=== PATIENT | female | born 1995 | race Caucasian/White ===

== ENCOUNTER 2021-01-03 16:47 | Emergency (ER) | payer OTHER ==
[~2021-01-03] VITALS: Ht 167.6 cm; Wt 65.8 kg
[~2021-01-03 16:47] MED LIST: Amoxicillin500 MG PO; Bactrim Ds Tab1 EACH PO; DEPRESSION MED; Flagyl500 MG PO; Keflex500 MG PO; MEDR150I IM; Macrobid 100 M100 MG PO; Tylenol325 MG PO; Verotin-Gr Cap1 EACH PO; Zofran Odt4 MG SL
[2021-01-03] MEDS ORDERED: Veetids 500500 MG PO (17:20)
== END 2021-01-03 17:28 | disposition home or self-care (01) ==
LOC: ER 16:47
DX: J02.0 Streptococcal pharyngitis (principal)
CPT/HCPCS: 81000; 81025; 87430; 99282; J1100

== ENCOUNTER 2021-05-03 20:50 | Emergency (ER) | payer OTHER ==
[~2021-05-03] VITALS: Ht 172.7 cm; Wt 68.0 kg
[~2021-05-03 20:50] MED LIST changes: +Veetids 500500 MG PO
== END 2021-05-03 22:54 | disposition home or self-care (01) ==
LOC: ER 20:50
DX: L25.5 Unspecified contact dermatitis due to plants, except food (principal); Z91.018 Allergy to other foods
CPT/HCPCS: 96372; 99282-25; A9270; J3301

== ENCOUNTER 2021-10-02 02:32 | Emergency (ER) | payer OTHER ==
[~2021-10-02] VITALS: Ht 172.7 cm; Wt 65.8 kg
== END 2021-10-02 04:21 | disposition home or self-care (01) ==
LOC: ER 02:32
DX: F41.9 Anxiety disorder, unspecified (principal); Z91.018 Allergy to other foods
CPT/HCPCS: 93005; 93010; 99285-25

== ENCOUNTER 2022-04-29 20:05 | Emergency (ER) | payer OTHER ==
[~2022-04-29] VITALS: Ht 172.7 cm; Wt 65.8 kg
== END 2022-04-29 20:31 | disposition left against medical advice (07) ==
LOC: ER 20:05
DX: R51.9 Headache, unspecified (principal); Z53.21 Procedure and treatment not carried out due to patient leaving prior to being seen by health care provider
CPT/HCPCS: 93005; 93010

== ENCOUNTER 2022-04-29 20:56 | Emergency (ER) | payer OTHER ==
[~2022-04-29] VITALS: Ht 172.7 cm; Wt 65.8 kg
[2022-04-29 21:30] LABS: BASOPHILS ABSOLUTE AUTO 0.03 K/mm3 (0.00-0.23); BASOPHILS PERCENT AUTO 0 % (0-2); EOSINOPHILS PERCENT AUTO 1 % (0-6); Hematocrit 41.3 % (33.0-51.0); IMMATURE GRAN ABSOLUTE AUTO 0.02 K/mm3 (0.00-0.10); IMMATURE GRAN PERCENT AUTO 0 % (0-1); LYMPHOCYTES ABSOLUTE AUTO 1.63 K/mm3 (0.84-5.20); LYMPHOCYTES PERCENT AUTO 23 % (21-46); MONOCYTES ABSOLUTE AUTO 0.48 K/mm3 (0.16-1.47); MONOCYTES PERCENT AUTO 7 % (4-13); Mean Corpuscular HGB 29.3 pg (26.0-34.0); Mean Corpuscular HGB Conc 33.9 g/dL (31.5-36.5); Mean Corpuscular Volume 86 fL (80-100); NEUTROPHILS ABSOLUTE AUTO 4.91 K/mm3 (1.96-9.15); NEUTROPHILS PERCENT AUTO 69 % (41-73); Platelet Count 267 K/mm3 (150-400); RDW Coefficient Variation 12.6 % (11.7-14.2); RDW Standard Deviation 40.2 fL (35.1-46.3); Red Blood Cell Count 4.78 M/mm3 (3.80-5.20); White Blood Cell Count 7.17 K/mm3 (4.00-11.30)
[2022-04-29 21:47] LABS: Albumin/Globulin Ratio 1.1 (0.8-1.8); Bilirubin, Total 0.4 mg/dL (0.1-1.0); Bun/Creatinine Ratio 11.9 (12.0-20.0); Calcium, Blood 9.2 mg/dL (8.5-10.1); Creatinine, Blood 0.76 mg/dL (0.40-1.00); Globulin, Blood 3.7 g/dL (2.2-4.0); Total Protein, Blood 7.7 g/dL (6.4-8.2)
== END 2022-04-30 00:01 | disposition home or self-care (01) ==
LOC: ER 20:56
PROVIDERS: Physician Assistant
DX: R00.2 Palpitations (principal); F32.A Depression, unspecified; F41.9 Anxiety disorder, unspecified; Z91.018 Allergy to other foods
CPT/HCPCS: 36415; 71046; 80053; 84484; 85025; A9270

== ENCOUNTER → 2022-10-03 | Outpatient (CLI) | payer OTHER | END | disposition home or self-care (01) | LOC: LAB 16:00 → LAB SHORT 16:00 | PROVIDERS: Obstetrics & Gynecology | DX: Z12.4 Encounter for screening for malignant neoplasm of cervix (principal) | CPT/HCPCS: G0145 ==

== ENCOUNTER 2023-11-16 15:41 | Emergency (ER) | payer OTHER ==
[~2023-11-16] VITALS: Ht 172.7 cm; Wt 68.5 kg
[2023-11-16 16:13] LABS: BASOPHILS ABSOLUTE AUTO 0.03 K/mm3 (0.00-0.23); BASOPHILS PERCENT AUTO 0 % (0-2); EOSINOPHILS ABSOLUTE AUTO 0.03 K/mm3 (0.00-0.68); EOSINOPHILS PERCENT AUTO 0 % (0-6); Hematocrit 42.8 % (33.0-51.0); Hemoglobin 14.7 g/dL (11.5-16.0); IMMATURE GRAN ABSOLUTE AUTO 0.02 K/mm3 (0.00-0.10); IMMATURE GRAN PERCENT AUTO 0 % (0-1); LYMPHOCYTES ABSOLUTE AUTO 2.02 K/mm3 (0.84-5.20); LYMPHOCYTES PERCENT AUTO 26 % (21-46); MONOCYTES ABSOLUTE AUTO 0.36 K/mm3 (0.16-1.47); MONOCYTES PERCENT AUTO 5 % (4-13); Mean Corpuscular HGB 29.4 pg (26.0-34.0); Mean Corpuscular HGB Conc 34.3 g/dL (31.5-36.5); Mean Corpuscular Volume 86 fL (80-100); NEUTROPHILS ABSOLUTE AUTO 5.47 K/mm3 (1.96-9.15); NEUTROPHILS PERCENT AUTO 69 % (41-73); Platelet Count 292 K/mm3 (150-400); RDW Coefficient Variation 12.8 % (11.7-14.2); RDW Standard Deviation 39.8 fL (35.1-46.3); White Blood Cell Count 7.93 K/mm3 (4.00-11.30)
[2023-11-16 16:35] LABS: Albumin, Blood 4.1 g/dL (3.4-5.0); Bun/Creatinine Ratio 15.4 (12.0-20.0); Calcium, Blood 9.5 mg/dL (8.5-10.1); Creatinine, Blood 0.78 mg/dL (0.40-1.00); Globulin, Blood 4.1 g/dL (2.2-4.0); Potassium, Blood 3.5 mmol/L (3.5-5.5); Total Protein, Blood 8.2 g/dL (6.4-8.2)
[2023-11-16 17:30] VITALS: BP 120/65
[2023-11-16] MEDS ORDERED: NS 1,000 ML IV SCH (17:30)
[2023-11-16] MEDS ORDERED: Tranexamic Acid 100 ML IV ONE (17:30)
[2023-11-16] MEDS ORDERED: METERG.2 PO (17:52)
[2023-11-16] MEDS ORDERED: DiphenhydrAMINE HCl 50 MG/ML 1ML Vial IV ONE (18:10)
== END 2023-11-16 19:43 | disposition home or self-care (01) ==
LOC: ER 15:41
PROVIDERS: Emergency Medicine
DX: N93.9 Abnormal uterine and vaginal bleeding, unspecified (principal)
CPT/HCPCS: 80053; 84703; 85025; 86850; 86900; 86901; J1200; J7030

== ENCOUNTER 2024-06-22 12:21 | Emergency (ER) | payer OTHER ==
[~2024-06-22] VITALS: Ht 172.7 cm; Wt 69.0 kg
[~2024-06-22 12:21] MED LIST changes: +METERG.2 PO
[2024-06-22 14:45] VITALS: BP 98/63
== END 2024-06-22 14:54 | disposition home or self-care (01) ==
LOC: ER 12:21
DX: O20.0 Threatened abortion (principal)
CPT/HCPCS: 76815; 99284-25

== ENCOUNTER → 2024-08-05 | Outpatient (CLI) | payer OTHER ==
[2024-08-05 14:00] LABS: Hematocrit 29.8 % (33.0-51.0); Hemoglobin 10.1 g/dL (11.5-16.0)
== END ==
LOC: LAB 12:03 → LAB SHORT 12:03
PROVIDERS: Registered Nurse Community Health
DX: Z34.92 Encounter for supervision of normal pregnancy, unspecified, second trimester (principal)
CPT/HCPCS: 82950; 85014; 85018

== ENCOUNTER → 2024-10-02 | Outpatient (CLI) | payer OTHER ==
[2024-10-02 17:32] LABS: BASOPHILS ABSOLUTE AUTO 0.08 K/mm3 (0.00-0.23); BASOPHILS PERCENT AUTO 1 % (0-2); EOSINOPHILS ABSOLUTE AUTO 0.06 K/mm3 (0.00-0.68); EOSINOPHILS PERCENT AUTO 1 % (0-6); Hematocrit 31.4 % (33.0-51.0); Hemoglobin 9.8 g/dL (11.5-16.0); IMMATURE GRAN ABSOLUTE AUTO 0.11 K/mm3 (0.00-0.10); IMMATURE GRAN PERCENT AUTO 1 % (0-1); LYMPHOCYTES ABSOLUTE AUTO 1.58 K/mm3 (0.84-5.20); LYMPHOCYTES PERCENT AUTO 15 % (21-46); MONOCYTES ABSOLUTE AUTO 0.74 K/mm3 (0.16-1.47); MONOCYTES PERCENT AUTO 7 % (4-13); Mean Corpuscular HGB 25.5 pg (26.0-34.0); Mean Corpuscular HGB Conc 31.2 g/dL (31.5-36.5); Mean Corpuscular Volume 82 fL (80-100); Mean Platelet Volume 9.4 fL (9.1-12.4); NEUTROPHILS PERCENT AUTO 76 % (41-73); Platelet Count 251 K/mm3 (150-400); RDW Coefficient Variation 13.9 % (11.7-14.2); RDW Standard Deviation 41.3 fL (35.1-46.3); Red Blood Cell Count 3.84 M/mm3 (3.80-5.20); White Blood Cell Count 10.67 K/mm3 (4.00-11.30)
== END ==
LOC: LAB SHORT 16:02 → LAB 16:02
PROVIDERS: Registered Nurse Community Health
DX: O99.013 Anemia complicating pregnancy, third trimester (principal); Z3A.00 Weeks of gestation of pregnancy not specified
CPT/HCPCS: 36415; 85025; 87081; 87150

== ENCOUNTER → 2024-10-08 | Outpatient (CLI) | payer OTHER ==
[2024-10-08 15:12] LABS: Iron Serum 28 ug/dL (50-170); Percent Saturation 4.5 % (15.0-50.0); Total Iron Binding Capacity 627 ug/dL (250-450)
[2024-10-08 15:20] LABS: Ferritin, Serum <1 ng/mL (8-252)
== END ==
LOC: LAB 13:29 → LAB SHORT 13:29
PROVIDERS: Registered Nurse Community Health
DX: O99.013 Anemia complicating pregnancy, third trimester (principal)
CPT/HCPCS: 82728; 83540; 83550

== ENCOUNTER 2024-10-22 12:53 | Inpatient (IN) | payer OTHER ==
[2024-10-22] VITALS (28 sets, daily range): BP systolic 92–225; BP diastolic 50–151
[~2024-10-22] VITALS: Ht 172.7 cm; Wt 79.0 kg
[2024-10-22] MEDS ORDERED: FentaNYL Citrate 50 MCG/ML 2 ML Injection IV PRN (13:35)
[2024-10-22] MEDS ORDERED: ePHEDrine Sulfate 50 MG/ML 1ML Injection XX PRN (13:35)
[2024-10-22] MEDS ORDERED: Carboprost Tromethamine 250 MCG/ML 1ML Amp IM PRN (13:35)
[2024-10-22] MEDS ORDERED: Acetaminophen 500 MG Tab PO PRN (13:35)
[2024-10-22] MEDS ORDERED: Methylergonovine Maleate 0.2MG / ML 1ML Amp IM PRN ×2 (13:35→19:00)
[2024-10-22] MEDS ORDERED: Oxytocin 10 Unit / ML Vial IM PRN (13:35)
[2024-10-22] MEDS ORDERED: Tranexamic Acid 100 ML IV SCH (13:35)
[2024-10-22] MEDS ORDERED: Misoprostol 200 MCG Tab BC PRN (13:35)
[2024-10-22] MEDS ORDERED: OXYTOCIN/RINGER'S LACTATE 500 ML IV PRN (13:35)
[2024-10-22] MEDS ORDERED: FentaNYL 2mcg/ml-Bup 0.1% Epd 250 ML EPI PRN (13:35)
[2024-10-22] MEDS ORDERED: Ondansetron HCl 2 MG / ML 2ML Vial IV PRN (13:35)
[2024-10-22] MEDS ORDERED: Lactated Ringer's 1,000 ML IV PRN ×3 (13:35)
[2024-10-22] MEDS ORDERED: Misoprostol 200 MCG Tab PR PRN (13:35)
[2024-10-22] MEDS ORDERED: Calcium Carbonate 500 MG Tab Chew PO PRN (13:40)
[2024-10-22 14:16] LABS: BASOPHILS ABSOLUTE AUTO 0.07 K/mm3 (0.00-0.23); BASOPHILS PERCENT AUTO 1 % (0-2); EOSINOPHILS ABSOLUTE AUTO 0.04 K/mm3 (0.00-0.68); EOSINOPHILS PERCENT AUTO 0 % (0-6); Hematocrit 35.7 % (33.0-51.0); Hemoglobin 11.1 g/dL (11.5-16.0); IMMATURE GRAN ABSOLUTE AUTO 0.13 K/mm3 (0.00-0.10); IMMATURE GRAN PERCENT AUTO 1 % (0-1); LYMPHOCYTES ABSOLUTE AUTO 1.86 K/mm3 (0.84-5.20); LYMPHOCYTES PERCENT AUTO 15 % (21-46); MONOCYTES ABSOLUTE AUTO 0.62 K/mm3 (0.16-1.47); MONOCYTES PERCENT AUTO 5 % (4-13); Mean Corpuscular HGB 24.4 pg (26.0-34.0); Mean Corpuscular HGB Conc 31.1 g/dL (31.5-36.5); Mean Corpuscular Volume 79 fL (80-100); Mean Platelet Volume 9.7 fL (9.1-12.4); NEUTROPHILS ABSOLUTE AUTO 9.43 K/mm3 (1.96-9.15); NEUTROPHILS PERCENT AUTO 78 % (41-73); Platelet Count 251 K/mm3 (150-400); RDW Coefficient Variation 14.9 % (11.7-14.2); RDW Standard Deviation 42.6 fL (35.1-46.3); Red Blood Cell Count 4.55 M/mm3 (3.80-5.20); White Blood Cell Count 12.15 K/mm3 (4.00-11.30)
[2024-10-22] MEDS ORDERED: FERREX 150150 M1 (14:23)
[2024-10-22] MEDS ORDERED: PRENATAL 19 TA1 EAC3 PO (14:24)
[2024-10-22] MEDS ORDERED: OXYTOCIN/RINGER'S LACTATE 500 ML IV SCH ×2 (17:05→19:05)
[2024-10-22] MEDS ORDERED: Witch Hazel/Glycerin PADS TOP PRN (19:00)
[2024-10-22] MEDS ORDERED: FLU VACC TS2024-25(6MOS UP)/PF 45 MCG/0.5 ML SYRINGE IM SCH (19:00)
[2024-10-22] MEDS ORDERED: Ibuprofen 400 MG Tab PO PRN (19:00)
[2024-10-22] MEDS ORDERED: Lanolin Cream TOP PRN (19:00)
[2024-10-22] MEDS ORDERED: Measles/Mumps/Rubella Vaccine 0.5 ML Vial SC SCH (19:00)
[2024-10-22] MEDS ORDERED: Docusate Sodium 100 MG Cap PO PRN (19:00)
[2024-10-22] MEDS ORDERED: Oxytocin 10 Unit / ML Vial IM ONE (19:05)
[2024-10-22] MEDS ORDERED: Ketorolac Tromethamine 30mg Vial IV PRN (19:05)
[2024-10-22] MEDS ORDERED: Rho(D) Immune Globulin 300 MCG / SYR IM ONE (19:05)
[2024-10-22] MEDS ORDERED: Acetaminophen 325 MG TABLET PO PRN (19:05)
[2024-10-22] MEDS ORDERED: Lactated Ringer's 1,000 ML IV SCH (19:05)
[2024-10-22] MEDS ORDERED: Benzocaine Topical Anesthetic Spray 60GM TOP PRN (19:10)
[2024-10-22] MEDS ORDERED: Acetaminophen/Codeine 300-30 mg PO PRN (19:10)
[2024-10-22] MEDS ORDERED: Misoprostol 200 MCG Tab XX PRN (19:20)
[2024-10-22] MEDS ORDERED: Rho(D) Immune Globulin 300 MCG / SYR IV ONE (21:55)
[2024-10-23 05:07] VITALS: BP 103/51
[2024-10-23 07:17] LABS: BASOPHILS ABSOLUTE AUTO 0.06 K/mm3 (0.00-0.23); BASOPHILS PERCENT AUTO 1 % (0-2); EOSINOPHILS ABSOLUTE AUTO 0.08 K/mm3 (0.00-0.68); EOSINOPHILS PERCENT AUTO 1 % (0-6); Hematocrit 28.2 % (33.0-51.0); Hemoglobin 8.8 g/dL (11.5-16.0); IMMATURE GRAN ABSOLUTE AUTO 0.14 K/mm3 (0.00-0.10); IMMATURE GRAN PERCENT AUTO 1 % (0-1); LYMPHOCYTES ABSOLUTE AUTO 1.89 K/mm3 (0.84-5.20); LYMPHOCYTES PERCENT AUTO 17 % (21-46); MONOCYTES ABSOLUTE AUTO 1.02 K/mm3 (0.16-1.47); MONOCYTES PERCENT AUTO 9 % (4-13); Mean Corpuscular HGB 24.2 pg (26.0-34.0); Mean Corpuscular HGB Conc 31.2 g/dL (31.5-36.5); Mean Corpuscular Volume 78 fL (80-100); Mean Platelet Volume 10.3 fL (9.1-12.4); NEUTROPHILS ABSOLUTE AUTO 8.21 K/mm3 (1.96-9.15); NEUTROPHILS PERCENT AUTO 72 % (41-73); Platelet Count 210 K/mm3 (150-400); RDW Coefficient Variation 14.8 % (11.7-14.2); RDW Standard Deviation 41.8 fL (35.1-46.3); Red Blood Cell Count 3.63 M/mm3 (3.80-5.20)
[2024-10-23] MEDS ORDERED: Prenatal Vit/FE Fumarate/FA 1 Tab PO SCH (09:00)
[2024-10-23 09:40] VITALS: BP 109/52
[2024-10-23] MEDS ORDERED: Sod Ferric Gluc Complx/Sucrose 125 MG in NS 100 ML IV ONE (10:40)
[2024-10-23 12:33] VITALS: BP 104/65
[2024-10-23 18:06] VITALS: BP 103/59
--- NOTE | 2024-10-23 19:22 | NUR ---
REPORT TO OSKAR HOLLAND
== END 2024-10-23 21:45 | disposition home or self-care (01) | DRG 807 ==
LOC: OBS 12:53 → BC 12:54 → OBS 13:25 → BC 13:25
PROVIDERS: ADMIT Registered Nurse Community Health
PROC: 3E0334Z Introduction of Serum, Toxoid and Vaccine into Peripheral Vein, Percutaneous Approach (ICD-10-PCS; principal; 2024-10-22)
PROC: 10E0XZZ Delivery of Products of Conception, External Approach (ICD-10-PCS; 2024-10-22)
PROC: 10907ZC Drainage of Amniotic Fluid, Therapeutic from Products of Conception, Via Natural or Artificial Opening (ICD-10-PCS; 2024-10-22)
PROC: 3E0R3BZ Introduction of Anesthetic Agent into Spinal Canal, Percutaneous Approach (ICD-10-PCS; 2024-10-22)
PROC: 00HU33Z Insertion of Infusion Device into Spinal Canal, Percutaneous Approach (ICD-10-PCS; 2024-10-22)
DX: O24.429 Gestational diabetes mellitus in childbirth, unspecified control (principal); Z37.0 Single live birth; O99.02 Anemia complicating childbirth; Z3A.38 38 weeks gestation of pregnancy; Z98.890 Other specified postprocedural states; Q97.0 Karyotype 47, XXX
CPT/HCPCS: 36415; 51702; 82947; 85025; 85460; 86850; 86870; 86900; 86901; 86920; 99214; A9270; J1885; J2590; J2791; J2916; J7120